=== PATIENT | male | born 1970 | race Caucasian/White ===

== ENCOUNTER 2017-11-02 21:31 | Emergency (ER) | payer OTHER ==
[~2017-11-02 21:31] MED LIST: AUGMENTIN 875-1 EACH PO; BACLOFEN10 M1 PO; BACTRIM DS TAB1 EACH PO; BENADRYL ALLERG25 M1 PO; EPIPEN 2-PAK1 MG/ML IM; IBUPROFEN800 M1 PO; KEFLEX500 M1 PO; MEDROL DOSEPAK1 PAC PO; MEDROL4 M2 PO; MULTIVITAMIN1 TAB PO; PERCOCET 5-3251 EACH PO; PREDNISONE 10MG10 M1 PO; TYLENOL WITH C1 EACH PO
[2017-11-02 21:37] VITALS: BP 120/81
--- NOTE | 2017-11-02 22:14 | ED HAND/WRIST INJURY COMPLAINT ---
History of Present Illness General Chief Complaint: Laceration Procedure Stated Complaint: HAND LAC Source: patient Exam Limitations: no limitations Vital Signs & Intake/Output Vital Signs & Intake/Output Vital Signs Date Time Temp Pulse Resp B/P B/P Pulse O2 O2 Flow FiO2 Mean Ox Delivery Rate 11/02 2137 72 20 120/81 99 Allergies Uncoded Allergies: CADEPPA (Severe, CITIZEN OF [place] - HIVES, REDNESS 11/05/15) Reconcile Medications Ibuprofen (Provil) 200 MG TABLET 4 TAB PO BID PAIN/INFLAMMATION (Reported) Triage Note: PER PT CUT INDEX FINGER ON L HAND WITH KNIFE LAST TETANUS 05/07 Triage Nurses Notes Reviewed? yes Occurred: just prior to arrival Duration: hour(s): (1), constant, continues in ED, getting worse Timing: single episode today Injury Environment: home Severity: mild, moderate Severity Numbers: 5 Pain/Injury Location: Left: 2nd finger. Context: laceration Method of Injury: laceration No Modifying Factors: none HPI: 47-year-old male medical history presents for evaluation of a laceration to his left index finger. Patient reports about one hour before presentation he was working with a knife that slipped and cut his finger. He denies any numbness or tingling. He is able to move the finger. Bleeding was controlled. He rates pain as a 5 out of 10. He is up-to-date on tetanus. No other injuries. (Lito Thacker) Past History Travel History Traveled to [place] past 21 day No Medical History Any Pertinent Medical History? see below for history Neurological: NONE EENT: NONE Cardiovascular: NONE Respiratory: asthma Gastrointestinal: NONE Hepatic: NONE Renal: NONE Musculoskeletal: chronic back pain Psychiatric: substance abuse Endocrine: NONE Blood Disorders: NONE Cancer(s): NONE Surgical History Surgical History: appendectomy Psychosocial History Who do you live with Significant Other Services at Home None What is your primary language Tajik Tobacco Use: Current Not Daily Daily Tobacco Use Amount/Type: =< 4 Cigarettes daily Family History Hx Contributory? No (Lito Thacker) Review of Systems Review of Systems Constitutional: Reports: no symptoms. EENTM: Reports: no symptoms. Respiratory: Reports: no symptoms. Cardiovascular: Reports: no symptoms. GI: Reports: no symptoms. Genitourinary: Reports: no symptoms. Musculoskeletal: Reports: no symptoms. Skin: Reports: see HPI. Neurological/Psychological: Reports: no symptoms. Hematologic/Endocrine: Reports: no symptoms. Immunologic/Allergic: Reports: no symptoms. All Other Systems: Reviewed and Negative (Lito Thacker) Physical Exam Physical Exam General Appearance: well developed/nourished, no apparent distress, alert, awake Head: atraumatic, normal appearance Eyes: Bilateral: normal appearance, EOMI. Ears, Nose, Throat: hearing grossly normal Neck: normal inspection Cardiovascular/Respiratory: no respiratory distress Back: normal inspection, normal range of motion Elbow Left: normal range of motion, normal inspection Elbow Right: normal range of motion, normal inspection Forearm Left: normal range of motion, normal inspection Forearm Right: normal range of motion, normal inspection Wrist Left: normal range of motion, normal inspection Wrist Right: normal range of motion, normal inspection Hand Left: lacerations, 2nd finger, there is a 2 cm linear laceration to the palmar aspect of the proximal left index finger. Subcutaneous tissues visible. No foreign body. Full range of motion intact strength 5 out of 5 Refill intact less than 2 seconds Hand Right: normal inspection, normal range of motion Neurologic/Tendon: normal sensation, normal motor functions, normal tendon functions, responds to pain, no evidence tendon injury, no pulse deficit Skin: intact, normal color, warm/dry (Lito Thacker) Progress Differential Diagnosis: abscess, cellulitis, contusion, fracture, laceration, contusion Plan of Care: Current Medications Sig/Zac Start time Last Medication Dose Stop Time Status Admin Lidocaine 20 ML ONCE ONE 11/02 2214 UNVr (Lidocaine 1%) 11/02 2215 Patient seen and evaluated. He has a laceration to the left index finger. The area was cleaned with sterile water. Betadine applied. 1% lidocaine without epi was used for local pain control. 5 4-0 nylon simple interrupted sutures were placed to approximate the wound. Patient tolerated well. He is up-to-date on tetanus. Discussed wound care procedures in detail. Sterile dressing applied. Discussed return precautions in detail. Remove sutures in 7-10 days. Laceration was approximated by PA student under my supervision. (Lito Thacker) Departure Departure Disposition: HOME OR SELF CARE Condition: Stable Clinical Impression Primary Impression: Finger laceration Qualifiers: Encounter type: initial encounter Finger: index finger Damage to nail status: without damage Foreign body presence: without foreign body Laterality: left Qualified Code: S61.211A - Laceration without foreign body of left index finger without damage to nail, initial encounter Referrals: Maico BORGES-CHARLIE,Will Ramírez (PCP/Family) Additional Instructions: Keep the area clean and dry. Avoid excessive movement. Change dressing once daily. After day for leave the area open to air dry. Look out for signs of infection such as redness swelling discharge or pain. The stitches need TO COME OUT IN 7-10 Days. Return Sooner with Any Concerns. Follow-Up with Her Primary Care Doctor This Coming Week for a Wound Check. Departure Forms: Customer Survey General Discharge Information (Lito Thacker) PA/PATIENT SERVICES CLERK Co-Sign Statement Statement: ED Attending supervision documentation- [] I saw and evaluated the patient. I have also reviewed all the pertinent lab results and diagnostic results. I agree with the findings and the plan of care as documented in the PA's/PATIENT SERVICES CLERK's documentation. [x] I have reviewed the ED Record and agree with the PA's/PATIENT SERVICES CLERK's documentation. [] Additions or exceptions (if any) to the PAs/PATIENT SERVICES CLERK's note and plan are summarized below: [] (Dianne PATEL,Usama Sears) Procedures Laceration/Wound Repair Laceration/Wound Repair: Wound Location: upper extremity (left index finger) Wound's Depth, Shape: linear Wound Length (cm): 2 Wound Explored: clean, no foreign body removed, irrigated extensively Irrigated w/ Saline (ccs): 500 Betadine Prep? Yes Anesthesia: 1% lidocaine Volume Anesthetic (ccs): 5 Wound Debrided: minimal Wound Repaired With: sutures Suture Size/Type: 4:0, nylon Number of Sutures: 5 Layer Closure? No Sterile Dressing Applied: Yes Splint Applied? No Tetanus Status: up to date (Lito Thacker)
[2017-11-02] MEDS ORDERED: PROVIL200 MG PO (22:24)
== END 2017-11-02 23:33 ==
LOC: ERH 21:31
DX: S61.211A Laceration without foreign body of left index finger without damage to nail, initial encounter (principal); W26.0XXA Contact with knife, initial encounter; Y93.9 Activity, unspecified; Y92.9 Unspecified place or not applicable